=== PATIENT | female | born 1990 | race American Indian/Alaskan Native ===

== ENCOUNTER 2019-09-09 21:05 | Observation (INO) | payer MEDICAID, OTHER ==
--- NOTE | 2019-09-09 21:20 | Event Note ---
ED Screening Note Date of service: 09/09/19 Time: 21:17 ED Screening Note: Pt complains of headache x 3 days and right eye pain x today +photophobia and noise sensitivity states headaches are abnormal for her 4 months This initial assessment/diagnostic orders/clinical plan/treatment(s) is/are subject to change based on patients health status, clinical progression and re- assessment by fellow clinical providers in the ED. Further treatment and workup at subsequent clinical providers discretion. Patient/guardian urged not to elope from the ED as their condition may be serious if not clinically assessed and managed. Initial orders include: labs
[2019-09-09 22:00] LABS: Alanine Aminotransferase 23 units/L (7-56); Albumin 3.5 g/dL (3.9-5); BUN/Creatinine Ratio 15; Blood Urea Nitrogen 6 mg/dL (7-17); Calcium 8.9 mg/dL (8.4-10.2); Hemolysis Index 33
[2019-09-09 22:04] LABS: Hematocrit 34.8 % (30.3-42.9); Hemoglobin 11.9 gm/dl (10.1-14.3); Mean Corpuscular HGB Conc 34 % (30-34); Mean Corpuscular Volume 90 fl (79-97); Platelet Count 243 K/mm3 (140-440); Red Blood Count 3.86 M/mm3 (3.65-5.03); Red Cell Distribution Width 13.8 % (13.2-15.2)
[2019-09-09 22:48] LABS: Erythrocyte Sedimentation Rate 32 mm/Hr (0-20)
[2019-09-10] MEDS ORDERED: diphenhydrAMINE 50 MG/ML VIAL IV ONE (00:05)
[2019-09-10] MEDS ORDERED: MAGNESIUM SULFATE 2 GM/50 ML BAG IV ONE (00:06)
[2019-09-10] MEDS ORDERED: METOCLOPRAMIDE 10 MG/2 ML INJ IV ONE (00:06)
[2019-09-10] MEDS ORDERED: LIDOCAINE (4%) 40 MG/ML TOPICAL SOLN 50 ML BOTTLE TP ONE (00:07)
[2019-09-10] MEDS ORDERED: ACETAMINOPHEN 325 MG TAB PO ONE (00:11)
--- NOTE | 2019-09-10 00:11 | Emergency Department Report ---
ED General Adult HPI - General Chief complaint: Headache Stated complaint: HEADACHE Time Seen by Provider: 09/09/19 21:16 Source: patient, RN notes reviewed Mode of arrival: Ambulatory Limitations: No Limitations - History of Present Illness Initial comments: This is a 29-year-old female who is not known to this provider previously. The patient reports that she is approximately 24 weeks, 2 days , her due date is December, and her [employer] physician is Dr. Arellano The patient presents to the ER with a primary complaint of headache. Today's currently Tuesday morning. The headache started Tuesday. The headache was initially central. The headache is not sudden or thunderclap in nature. The headache has now migrated to the right periorbital region, and right anterior frontal region, and right face. The headache is throbbing, and not described as sudden or thunderclap in nature. This headache is not similar to previous headaches that she's had in the past. There is no midline neck pain, there is no neck stiffness, there is no loss of vision. The patient endorses sensitivity to light and sound. There is no dental pain. This is new for her. There is no tinnitus. There is no vertigo. There is no abdominal pain. There are no urinary symptoms. -: Gradual, hour(s) Location: head, face Quality: aching, other Consistency: intermittent Improves with: rest Worsens with: other (worsens with exposure to light, and sound) - Related Data Previous Rx's Medication Instructions Recorded Last Taken Type Ferrous Sulfate [Feosol 325 MG tab] 325 mg PO BID #60 tablet 10/30/13 Unknown Rx Ibuprofen [Motrin] 800 mg PO TID PRN #30 tablet 10/30/13 Unknown Rx Vit-Fe Fumar-FA [ 1 each PO QDAY #30 tablet 10/30/13 Unknown Rx Vitamin] Allergies Allergy/AdvReac Type Severity Reaction Status Date / Time No Known Allergies Allergy Unverified 10/29/13 08:27 ED Review of Systems ROS: Stated complaint: HEADACHE Other details as noted in HPI Constitutional: denies: fever Eyes: denies: eye pain, eye discharge, vision change ENT: denies: dental pain Respiratory: denies: cough Cardiovascular: denies: chest pain Gastrointestinal: denies: abdominal pain, vomiting Genitourinary: denies: dysuria Musculoskeletal: denies: back pain Skin: denies: lesions Neurological: headache. denies: weakness, numbness, paresthesias, confusion ED Past Medical Hx - Past Medical History Previous Medical History?: No Hx Hypertension: No Hx Congestive Heart Failure: No Hx Diabetes: No Hx Deep Vein Thrombosis: No Hx Renal Disease: No Hx Sickle Cell Disease: No Hx Seizures: No Hx Asthma: No Hx COPD: No Hx HIV: No - Surgical History Past Surgical History?: No - Social History Smoking Status: Never Smoker Substance Use Type: None - Medications Home Medications: Home Medications Medication Instructions Recorded Confirmed Last Taken Type Ferrous Sulfate [Feosol 325 MG tab] 325 mg PO BID #60 tablet 10/30/13 Unknown Rx Ibuprofen [Motrin] 800 mg PO TID PRN #30 tablet 10/30/13 Unknown Rx Vit-Fe Fumar-FA [ 1 each PO QDAY #30 tablet 10/30/13 Unknown Rx Vitamin] ED Physical Exam - General Limitations: No Limitations General appearance: alert, in no apparent distress - Head Head exam: Present: atraumatic, normocephalic - Eye Eye exam: Present: normal appearance, PERRL, EOMI, other (visual acuity intact to finger counting, color perception, reading at a close distance). Absent: scleral icterus, conjunctival injection, nystagmus, periorbital tenderness - ENT ENT exam: Present: normal exam, normal orophraynx, mucous membranes moist, TM's normal bilaterally, normal external ear exam - Neck Neck exam: Present: normal inspection, full ROM. Absent: tenderness, meningismus - Respiratory Respiratory exam: Present: normal lung sounds bilaterally. Absent: respiratory distress - Cardiovascular Cardiovascular Exam: Present: regular rate, normal rhythm, normal heart sounds. Absent: bradycardia, tachycardia, irregular rhythm, systolic murmur, diastolic murmur, rubs, gallop - GI/Abdominal GI/Abdominal exam: Present: soft. Absent: distended, tenderness, guarding, rebound, rigid, pulsatile mass - Extremities Exam Extremities exam: Present: normal inspection, full ROM, other (2+ pulses noted in the bilateral upper, lower extremities. There is no long bone tenderness. Musculoskeletal compartments are soft. The pelvis is stable.). Absent: pedal edema, joint swelling, calf tenderness - Back Exam Back exam: Present: normal inspection, full ROM. Absent: tenderness, CVA tenderness (R), CVA tenderness (L), paraspinal tenderness, vertebral tenderness - Neurological Exam Neurological exam: Present: alert, oriented X3, normal gait (there is no past- pointing. There is normal [id number]. There is a normal gait. There is normal tandem gait. There is negative pronator drift.), other (there is no facial droop. The tongue is midline. Extraocular movements are intact bilaterally. Patient speaking in full complete sentences. Shoulder shrug is intact bilaterally. Hearing is grossly intact bilaterally. Visual acuity intact to finger counting and color perception at a close distance. 5/5 strength 4 extremities. Sensation intact to light touch in 4 extremities.). Absent: motor sensory deficit - Psychiatric Psychiatric exam: Present: normal affect, normal mood - Skin Skin exam: Present: warm, dry, intact, normal color. Absent: rash ED Course Vital Signs 09/09/19 09/09/19 09/09/19 21:09 21:12 21:24 Temperature 99.0 F 99 F 98.4 F Pulse Rate 82 82 69 Respiratory 18 18 18 Rate Blood Pressure 115/76 115/76 129/65 O2 Sat by Pulse 99 99 99 Oximetry 09/10/19 09/10/19 00:06 00:30 Temperature Pulse Rate Respiratory Rate Blood Pressure 123/68 109/64 O2 Sat by Pulse Oximetry - Reevaluation(s) Reevaluation #1: 09/10/19 01:03 Differential diagnosis, including not limited to: Migraine headache, tension headache, cluster headache, intracranial hemorrhage, venous sinus thrombosis, preeclampsia Assessment and plan: 29-year-old female with new onset headache, present for 3 days, no neck stiffness, headache is not sudden or thunderclap in nature, it does have migrainous characteristics. However, the patient states that she's not had a headache like this before in the past. She walks with a steady gait, has no cerebellar signs, and has an unremarkable neurologic examination. Bedside ultrasound confirms intrauterine . Reevaluation #2: 09/10/19 01:30 The patient states her due date is December, therefore, she is 24 weeks, 2 d ays . A bedside ultrasound confirms and serum , and spontaneous heart rate and movements. Noncontrast CT scan of brain negative for acute disease. Patient indicates that she feels somewhat improved. However, her headache is not completely improved. She is not hypertensive, she has normal liver tests, there is no lower extremity edema, therefore, we do not think that preeclampsia is very likely. I contacted [employer] on-call, Dr. Adkins, and he agreed that preeclampsia is very unlikely at this point time. We also contacted neurology on-call, Dr. Allyssa Kenyon, and discussed the patient's history, physical, and imaging studies. He indicates that migrainous headache is a possibility, however, we cannot exclude venous sinus thrombosis at this time. He further agrees and recommends that MRI of the brain, MRV, without contrast, would be reasonable to further evaluate intracranial structures. The aforementioned [employer] doctor indicates he can follow in consultation, if inpatient medical team has specific obstetrics related questions. Discussed this plan of care with the patient, who is amenable to admission/hospitalization. We contacted our Hospital physician on-call, Dr. Chong, who had graciously agreed to admit the patient to the medical service. ED Medical Decision Making - Lab Data Result diagrams: 09/09/19 21:28 09/09/19 21:28 Critical care attestation.: If time is entered above; I have spent that time in minutes in the direct care of this critically ill patient, excluding procedure time. ED Disposition Clinical Impression: Headache, Disposition: -09 OP ADMIT IP TO THIS HOSP Is pt being admited?: Yes Does the pt Need Aspirin: No Condition: Good Referrals: DOLORES ISAAC MD [Primary Care Provider] - 3-5 Days
--- NOTE | 2019-09-10 00:57 | Cat Scan Report ---
CT head/brain wo con INDICATION / CLINICAL INFORMATION: headache. Patient is . TECHNIQUE: Axial CT imaging of the brain was obtained without contrast. Coronal and sagittal reformatted imaging obtained and reviewed. All CT scans at this location are performed using CT dose reduction for ALAR A by means of automated exposure control. COMPARISON: None available. FINDINGS: No intracranial hemorrhage, mass, or midline shift is identified. No extra-axial fluid collection or suggestion of acute territorial infarct. Ventricular system and basilar cisterns are unremarkable. Visualized paranasal sinuses are well aerated and clear. Mastoid air cells are clear. No calvarial ab normality. IMPRESSION: 1. Negative noncontrasted head CT scan. Signer Name: Flor Davis MD Signed: 09/10/2019 12:52 AM Workstation Name: [id number]
[2019-09-10 01:31] LABS: Bilirubin,Urine NEG (Negative); Color,Urine Yellow (Yellow); Mucus,Urine FEW /HPF; Protein,Urine <15 mg/dL mg/dL (Negative); Urobilinogen,Urine < 2.0 mg/dL (<2.0)
[2019-09-10 01:32] LABS: Blood,Urine Trace (Negative)
[2019-09-10] MEDS ORDERED: MORPHINE 2 MG/1 ML INJ IV PRN (01:47)
[2019-09-10] MEDS ORDERED: ONDANSETRON 4 MG/2 ML INJ IV PRN (01:47)
--- NOTE | 2019-09-10 01:50 | History and Physical Report ---
History of Present Illness Date of examination: 09/10/19 History of present illness: 29-year-old woman, 24 weeks comes to the emergency room complaints of headache that started on Tuesday. He is on the right side which was intermittent but has now become constant,some relief with Tylenol, sharp, intensity 7/10, no radiation, cervical light and sound and no nausea vomiting, fever, chills Review Of Systems: Constitutional: no weight loss, fever, chills Ears, eyes, nose, mouth and throat: no nasal congestion, no nasal discharge, no sinus pressure, blurry vision, diplopia Neck: No neck pain or rigidity. Cardiovascular: No palpitations, chest pain Respiratory: No shortness of breath, cough Gastrointestinal: No hematochezia, abdominal pain Genitourinary : no dysuria, frequency Musculoskeletal: no muscle ache , joint pain Integumentary: no rash, no pruritis Neurological: no parathesias, focal weakness Endocrine: no cold or heat intolerance, no polyuria or polydipsia Hematologic/Lymphatic: no easy bruising, no easy bleeding, no gland swelling Allergic/Immunologic: no urticaria, no angioedema. PAST MEDICAL HISTORY:24 weeks PAST SURGICAL HISTORY: None FAMILY HISTORY:hypertension, diabetes SOCIAL HISTORY: Denies tobacco, drugs, alcohol Medications and Allergies Allergies Allergy/AdvReac Type Severity Reaction Status Date / Time No Known Allergies Allergy Unverified 10/29/13 08:27 Home Medications Medication Instructions Recorded Confirmed Last Taken Type Ferrous Sulfate [Feosol 325 MG tab] 325 mg PO BID #60 tablet 10/30/13 Unknown Rx Ibuprofen [Motrin] 800 mg PO TID PRN #30 tablet 10/30/13 Unknown Rx Vit-Fe Fumar-FA [ 1 each PO QDAY #30 tablet 10/30/13 Unknown Rx Vitamin] Exam - Physical Exam Narrative exam: General Apperance: The patient sitting in bed no acute distress HEENT: Normocephalic, atraumatic. Pupils equally round and reactive to light, extraocular movement intact, and no sclericterus or JVD or thyromegaly or nodule. Neck supple, no carotid bruit, mucous membranes moist, no exudate or erythema Heart: S1-S2, regular is rhythm Lungs: Clear to auscultation bilaterally, breathing comfortable Abdomen: Positive bowel sounds, soft, nontender, nondistended, no organomegaly Extremities: No edema cyanosis clubbing Skin: no rash, nodule, warm and dry Neuro:CN 2 -12 intact, motor/sensory intact, speech is fluent - Constitutional Vitals: Temp Pulse Resp BP Pulse Ox 98.4 F 69 18 109/64 99 09/09/19 21:24 09/09/19 21:24 09/09/19 21:24 09/10/19 00:30 09/09/19 21:24 Results - Labs CBC & Chem 7: 09/09/19 21:28 09/09/19 21:28 Labs: Abnormal lab results 09/09/19 09/09/19 09/10/19 Range/Units 21:28 21:28 01:14 WBC 11.4 H (4.5-11.0) K/mm3 Sodium 136 L (137-145) mmol/L Carbon Dioxide 20 L (22-30) mmol/L BUN 6 L (7-17) mg/dL Creatinine 0.4 L (0.7-1.2) mg/dL Glucose 103 H (65-100) mg/dL Albumin 3.5 L (3.9-5) g/dL Urine WBC (Auto) 17.0 H (0.0-6.0) /HPF - Imaging and Cardiology CT Scan - head: report reviewed Assessment and Plan Assessment Migraine headache Urinary tract Infection Plan Admit to medicine Start IV morphine, antiemetics Consult neurology Telemetry neurology recommended MRI to rule out venous sinusitis thrombosis Patient to decide on MRI, start rocephin, follow cultures, start Iv morphine DVT prophylaxis
[2019-09-10] MEDS: cefTRIAXone/NS 1 GM/50 ML 1 GM/50 ML BAG IV SCH (06:27)
[2019-09-10] MEDS ORDERED: ENOXAPARIN 30 MG/0.3 ML INJ SUB-Q SCH (10:00)
[2019-09-10] MEDS: ENOXAPARIN 40 MG/0.4 ML INJ SUB-Q SCH (10:23)
[2019-09-10] MEDS: ACETAMINOPHEN 325 MG TAB PO PRN (11:55)
--- NOTE | 2019-09-10 13:00 | Event Note ---
Date: 09/10/19 18-year-old lady who started 4 weeks admitted for severe migraine headache. Patient cannot be on symptoms develop. Commenced tylenol and muscle relaxants per neurology recommendation
--- NOTE | 2019-09-10 14:41 | Consultation ---
Medications and Allergies Allergies Allergy/AdvReac Type Severity Reaction Status Date / Time No Known Allergies Allergy Unverified 10/29/13 08:27 Home Medications Medication Instructions Recorded Confirmed Last Taken Type Ferrous Sulfate [Feosol 325 MG tab] 325 mg PO BID #60 tablet 10/30/13 Unknown Rx Ibuprofen [Motrin] 800 mg PO TID PRN #30 tablet 10/30/13 Unknown Rx Vit-Fe Fumar-FA [ 1 each PO QDAY #30 tablet 10/30/13 Unknown Rx Vitamin] Active Meds: Active Medications Acetaminophen (Tylenol) 650 mg PO Q4H PRN PRN Reason: Pain MILD(1-3)/Fever >100.5/CHIANG Last Admin: 09/10/19 11:55 Dose: 650 mg Documented by: Enoxaparin Sodium (Enoxaparin) 40 mg SUB-Q QDAY@1000 KATE Last Admin: 09/10/19 10:23 Dose: 40 mg Documented by: Ceftriaxone Sodium (Rocephin/Ns 1 Gm/50 Ml) 1 gm in 50 mls @ 100 mls/hr IV Q24H KATE; Protocol Last Admin: 09/10/19 06:27 Dose: 100 mls/hr Documented by: Morphine Sulfate (Morphine) 1 mg IV Q6H PRN PRN Reason: Pain, Moderate (4-6) Last Admin: 09/10/19 05:06 Dose: 1 mg Documented by: Ondansetron HCl (Zofran) 4 mg IV Q8H PRN PRN Reason: Nausea And Vomiting Sodium Chloride (Sodium Chloride Flush Syringe 10 Ml) 10 ml IV BID [facility] Last Admin: 09/10/19 10:23 Dose: 10 ml Documented by: Sodium Chloride (Sodium Chloride Flush Syringe 10 Ml) 10 ml IV PRN PRN PRN Reason: LINE FLUSH Physical Examination - Vital Signs Vital Signs: Vital Signs Temp Pulse Resp BP Pulse Ox 99.0 F 82 18 115/76 99 09/09/19 21:09 09/09/19 21:09 09/09/19 21:09 09/09/19 21:09 09/09/19 21:09 Results - Laboratory Findings CBC and BMP: 09/09/19 21:28 09/09/19 21:28 Abnormal Lab Findings: Abnormal Labs 09/09/19 09/09/19 09/10/19 21:28 21:28 01:14 WBC 11.4 H Sodium 136 L Carbon Dioxide 20 L BUN 6 L Creatinine 0.4 L Glucose 103 H Albumin 3.5 L Urine WBC (Auto) 17.0 H Assessment and Plan 29 YEAR OLD FEMALE WITH HISTORY OF NO SIGNIFICANT MEDICAL PROBLEM, CURRENTLY 24 WEEK , 3, PARA2 WHO DEVELOPED HEADACHE ON 09/07/2019/. HEADACHE GRADUALLY BECAME SO SEVERE THAT SHE HAD TO COME TO THE EMERGENCY TODAY. HAD A CT SCAN OF THE HEAD UPON ADMISSION WHICH DID NOT SHOW ANY INTRA CRANIAL ABNORMALITY, ACUTE OR CHRONIC.HEADACHE IS DESCRIBED SENSATION OF THROBBING MOSTLY ON THE RT CHRISTIANITY, ASSOCIATED WITH PHOTOPHOBIA,SONOPHOBIA, NO NAUSEA OR VOMITTING. PATIENT ALSO FEELS A SENSATION OF TIGHT BAND AROUND HER HEAD AND IF WEARING A TIGHT HAT.SHE WORKS A [employer] AT [employer] [place]. SHE WORKS TEN HOURS A DAY AND THERE IS SIGNIFICANT STRESS AT WORK. PHYSICAL EXAMINATION. GENERAL- IN NO ACUTE DISTRESS, SHE IS ALERT AND APPROPRIATE, HAS INSIGHT INTO HER PROBLEM AND ANSWERS QUESTIONS APPROPRIATELY. HEART-NORMAL RATE AND RHYTHM CAROTIDS- BOTH PALPABLE, CRANIAL NERVES- PUPILS REACT TO LIGHT, EXTRA OCULAR MOVEMENT IS INTACT,NO FACIAL SYMMETRY, OTHER CRANIAL NERVES ARE WITH IN NORMAL LIMIT. MOTOR- NORMAL STRENGTH IN ALL FOUR EXTREMITIES. CERVICAL,PARA SPINAL STIFFNESS, STIFFNESS AROUND CRANIAL VAULT, REFLEXES- ALL REFLEXES ARE WITH IN NORMAL LIMIT WITH BILATERAL DOWN GOING TOES. SENSORY- GROSSLY WITH IN NORMAL,LIMIT IMPRESSION 1. COMMON MIGRAINE SUPER IMPOSED ON TENSION TYPE HEADACHE, RECOMMEND. 1. SPECIFIC MEDICINE SUCH TRIPTANS CAN NOT BE GIVEN DUE TO HER 2. WILL GIVE HER FLEXERIL 5MG AND TYELENOL 500MG TOGETHER TWICE3. A DAY, 3. MELATONIN 3MG AT BED TIME, ONE DOSE ONLY.
[2019-09-10] MEDS: CYCLOBENZAPRINE 10 MG TAB PO SCH (18:07)
[2019-09-10] MEDS: MELATONIN 5 MG TAB PO SCH (21:14)
[2019-09-10] MEDS: ACETAMINOPHEN 500 MG TAB PO SCH (21:14)
[2019-09-10] MEDS ORDERED: MELATONIN 5 MG TAB PO SCH (22:00)
[2019-09-11] MEDS: cefTRIAXone/NS 1 GM/50 ML 1 GM/50 ML BAG IV SCH (05:18)
[2019-09-11] MEDS: ACETAMINOPHEN 325 MG TAB PO PRN ×2 (05:29→19:44)
[2019-09-11 08:51] LABS: Basophils # (Auto) 0.1 K/mm3 (0.0-0.1); Basophils % (Auto) 0.8 % (0.0-1.8); Eosinophils # (Auto) 0.2 K/mm3 (0.0-0.4); Eosinophils % (Auto) 2.8 % (0.0-4.3); Hematocrit 33.1 % (30.3-42.9); Hemoglobin 11.2 gm/dl (10.1-14.3); Lymphocytes # (Auto) 1.9 K/mm3 (1.2-5.4); Lymphocytes % (Auto) 21.6 % (13.4-35.0); Mean Corpuscular HGB Conc 34 % (30-34); Mean Corpuscular Volume 91 fl (79-97); Monocytes # (Auto) 0.9 K/mm3 (0.0-0.8); Monocytes % (Auto) 10.7 % (0.0-7.3); Platelet Count 206 K/mm3 (140-440); Red Blood Count 3.63 M/mm3 (3.65-5.03); Red Cell Distribution Width 14.3 % (13.2-15.2)
[2019-09-11 09:03] LABS: BUN/Creatinine Ratio 18; Blood Urea Nitrogen 7 mg/dL (7-17); Calcium 8.8 mg/dL (8.4-10.2); Hemolysis Index 0
[2019-09-11] MEDS: ACETAMINOPHEN 500 MG TAB PO SCH ×2 (10:05→23:35)
[2019-09-11] MEDS: CYCLOBENZAPRINE 10 MG TAB PO SCH ×2 (10:06→21:23)
[2019-09-11] MEDS: ENOXAPARIN 40 MG/0.4 ML INJ SUB-Q SCH (10:07)
--- NOTE | 2019-09-11 12:38 | Progress Note ---
Assessment and Plan Assessment and plan: Common Migraine. Patient still complains of headache. Continue Flexeril, Tylenol and melatonin. . UTI. Continue Rocephin. History Interval history: No new issues overnight. Hospitalist Physical - Constitutional Vitals: Temp Pulse Resp BP Pulse Ox 98.6 F 89 19 102/63 98 09/11/19 12:04 09/11/19 12:04 09/11/19 12:04 09/11/19 12:04 09/11/19 12:04 General appearance: Present: no acute distress, well-nourished - EENT Eyes: Present: PERRL, EOM intact ENT: hearing intact, clear oral mucosa, dentition normal - Neck Neck: Present: supple, normal ROM - Respiratory Respiratory effort: normal Respiratory: bilateral: CTA - Cardiovascular Rhythm: regular Heart Sounds: Present: S1 & S2. Absent: gallop, rub - Extremities Extremities: no ischemia, No edema, Full ROM - Abdominal General gastrointestinal: soft, non-tender, non-distended, normal bowel sounds - Integumentary Integumentary: Present: clear, warm, dry - Neurologic Neurologic: CNII-XII intact, moves all extremities Results - Labs CBC & Chem 7: 09/11/19 07:42 09/11/19 07:42 Labs: Laboratory Last Values WBC 8.7 K/mm3 (4.5-11.0) 09/11/19 07:42 RBC 3.63 M/mm3 (3.65-5.03) L 09/11/19 07:42 Hgb 11.2 gm/dl (10.1-14.3) 09/11/19 07:42 Hct 33.1 % (30.3-42.9) 09/11/19 07:42 MCV 91 fl (79-97) 09/11/19 07:42 MCH 31 pg (28-32) 09/11/19 07:42 MCHC 34 % (30-34) 09/11/19 07:42 RDW 14.3 % (13.2-15.2) 09/11/19 07:42 Plt Count 206 K/mm3 (140-440) 09/11/19 07:42 Lymph % (Auto) 21.6 % (13.4-35.0) 09/11/19 07:42 [place] % (Auto) 10.7 % (0.0-7.3) H 09/11/19 07:42 Eos % (Auto) 2.8 % (0.0-4.3) 09/11/19 07:42 Baso % (Auto) 0.8 % (0.0-1.8) 09/11/19 07:42 Lymph # 1.9 K/mm3 (1.2-5.4) 09/11/19 07:42 [place] # 0.9 K/mm3 (0.0-0.8) H 09/11/19 07:42 Eos # 0.2 K/mm3 (0.0-0.4) 09/11/19 07:42 Baso # 0.1 K/mm3 (0.0-0.1) 09/11/19 07:42 Seg Neutrophils % 64.1 % (40.0-70.0) 09/11/19 07:42 Seg Neutrophils # 5.6 K/mm3 (1.8-7.7) 09/11/19 07:42 ESR 32 mm/Hr (0-20) 09/09/19 21:28 Sodium 137 mmol/L (137-145) 09/11/19 07:42 Potassium 4.0 mmol/L (3.6-5.0) 09/11/19 07:42 Chloride 103.7 mmol/L (98-107) 09/11/19 07:42 Carbon Dioxide 21 mmol/L (22-30) L 09/11/19 07:42 Anion Gap 16 mmol/L 09/11/19 07:42 BUN 7 mg/dL (7-17) 09/11/19 07:42 Creatinine 0.4 mg/dL (0.7-1.2) L 09/11/19 07:42 Estimated GFR > 60 ml/min 09/11/19 07:42 BUN/Creatinine Ratio 18 % 09/11/19 07:42 Glucose 83 mg/dL (65-100) 09/11/19 07:42 Calcium 8.8 mg/dL (8.4-10.2) 09/11/19 07:42 Magnesium 1.80 mg/dL (1.7-2.3) 09/10/19 00:00 Total Bilirubin 0.30 mg/dL (0.1-1.2) 09/09/19 21:28 AST 23 units/L (5-40) 09/09/19 21:28 ALT 23 units/L (7-56) 09/09/19 21:28 Alkaline Phosphatase 59 units/L (35-129) 09/09/19 21:28 Total Creatine Kinase 86 units/L (30-135) 09/10/19 00:00 Total Protein 7.1 g/dL (6.3-8.2) 09/09/19 21:28 Albumin 3.5 g/dL (3.9-5) L 09/09/19 21:28 Albumin/Globulin Ratio 1.0 % 09/09/19 21:28 Urine Color Yellow (Yellow) 09/10/19 01:14 Urine Turbidity Slightly-cloudy (Clear) 09/10/19 01:14 Urine pH 6.0 (5.0-7.0) 09/10/19 01:14 Ur Specific Thermal 1.011 (1.003-1.030) 09/10/19 01:14 Urine Protein <15 mg/dl mg/dL (Negative) 09/10/19 01:14 Urine Glucose (UA) Neg mg/dL (Negative) 09/10/19 01:14 Urine Ketones Neg mg/dL (Negative) 09/10/19 01:14 Urine Blood Trace (Negative) 09/10/19 01:14 Urine Nitrite Neg (Negative) 09/10/19 01:14 Urine Bilirubin Neg (Negative) 09/10/19 01:14 Urine Urobilinogen < 2.0 mg/dL (<2.0) 09/10/19 01:14 Ur Leukocyte Esterase Lg (Negative) 09/10/19 01:14 Urine WBC (Auto) 17.0 /HPF (0.0-6.0) H 09/10/19 01:14 Urine RBC (Auto) 30.0 /HPF (0.0-6.0) 09/10/19 01:14 U Epithel Cells (Auto) 6.0 /HPF (0-13.0) 09/10/19 01:14 Urine Mucus Few /HPF 09/10/19 01:14 Active Medications - Current Medications Current Medications: Generic Name Dose Route Start Last Admin Trade Name Freq PRN Reason Stop Dose Admin Acetaminophen 650 mg 09/10/19 01:47 09/11/19 05:29 Tylenol PO 650 mg Q4H PRN Administration Pain MILD(1-3)/Fever >100.5/CHIANG Acetaminophen 500 mg 09/10/19 22:00 09/11/19 10:05 Tylenol PO 500 mg BID KATE Administration Cyclobenzaprine HCl 5 mg 09/10/19 18:15 09/11/19 10:06 Flexeril PO 5 mg BID KATE Administration Enoxaparin Sodium 40 mg 09/10/19 10:00 09/11/19 10:07 Enoxaparin SUB-Q 40 mg QDAY@1000 KATE Administration Ceftriaxone Sodium 1 gm in 50 mls @ 100 mls/hr 09/10/19 06:00 09/11/19 05:18 Rocephin/Ns 1 Gm/50 Ml IV 09/14/19 06:29 100 mls/hr Q24H KATE Administration Protocol Melatonin 5 mg 09/10/19 22:00 09/10/19 21:14 Melatonin PO 5 mg QHS KATE Administration Morphine Sulfate 1 mg 09/10/19 01:47 09/10/19 05:06 Morphine IV 1 mg Q6H PRN Administration Pain, Moderate (4-6) Ondansetron HCl 4 mg 09/10/19 01:47 Zofran IV Q8H PRN Nausea And Vomiting Sodium Chloride 10 ml 09/10/19 10:00 09/10/19 21:14 Sodium Chloride Flush Syringe 10 Ml IV 10 ml BID KATE Administration Sodium Chloride 10 ml 09/10/19 01:47 Sodium Chloride Flush Syringe 10 Ml IV PRN PRN LINE FLUSH Nutrition/Malnutrition Assess - Dietary Evaluation Nutrition/Malnutrition Findings: Nutrition Notes Start: 09/10/19 10:51 Freq: Status: Active Protocol: Document 09/10/19 10:52 PATRICIA (Rec: 09/10/19 10:52 PATRICIA [id number]) Nutrition Notes 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 Will assess upon further consult or LOS.
--- NOTE | 2019-09-11 17:18 | Progress Note ---
Assessment and Plan 29 YEAR OLD FEMALE WITH HISTORY OF NO SIGNIFICANT MEDICAL PROBLEM WHO WAS ADMITTED ON ACCOUNT OF SEVERE HEADACHE. SHE WAS 24 WEEK . HEADACHE WAS A COMBINATION OF BOTH COMMON MIGRAINE AND WELL CHRONIC TENSION TYPE. PATIENT WAS GIVEN A COMBINATION OF TYELENOL 500MG AND FLEXERIL 5MG PO BID AND WAS GIVEN 5MG MELATONIN AT NIGHT FOR SLEEP. PATIENT STATES SHE FEELS MUCH BETTER TODAY, HEADACHE HAS ALMOST RESOLVED, ANTI MIGRAINE MEDICATION COULD NOT BE GIVEN DUE TO HER , HOWEVER AT PRESENT MIGRAINE WEELL TENSION TYPE EHADACHE SYMPTOMS BOTH HAVE ALMOST RESOLVED. PHYSICAL EXAMINATION IN NOACUTE DISTRESS. STATES SHE FEELS MUCH BETTER. SMILING. HEART-NORMAL RATE AND RHYTHM CAROTIDS- BOTH PALPABLE CRANIAL NERVES- ALL WITH IN NORMAL LIMIT MOTOR-NORMAL STRENGTH IN ALL FOUR EXTREMITIES COORDINATION AND REFLEXES ARE NORMAL GAIT- NORMAL. IMPRESSION. 1.HEAD IN , COMMON MIGRAINE AND TENSION TYPE, RESPONDED TO CYCLOBENZAPRINE AND TYELENOL RECOMMEND 1. PATIENT MAY BE DISCHARGED TOMORROW. 2. PATIENT SHOULD BE GIVEN A PRESCRIPTION FOR FLEXERIL 5 MG PO BID PRN, PATIENT SHOULD BE INSTRUCTED TO TAKE FLEXERIL WITH TYELENOL 500MG BID PRN,BUT SHOULD NOT TAKE UNLESS ABSOLUTELY NECESSARY SHE IS [id number]. 3. SHE SHOULD BE ADVISED TO TAKE MELATONIN 5MG QHS IF SHE HAS DIFFICULTY SLEEPING. Objective - Vital Sign Vital Signs - 12hr 09/11/19 09/11/19 09/11/19 06:07 12:04 16:46 Temperature 98.1 F 98.6 F Pulse Rate 82 89 Pulse Rate [ 82 Right Brachial] Respiratory 18 19 18 Rate Blood Pressure 100/57 102/63 O2 Sat by Pulse 97 98 97 Oximetry - Laboratory Findings CBC and BMP: 09/11/19 07:42 09/11/19 07:42 Abnormal Lab Findings: Abnormal Labs 09/09/19 09/09/19 09/10/19 21:28 21:28 01:14 WBC 11.4 H RBC [place] % (Auto) [place] # Sodium 136 L Carbon Dioxide 20 L BUN 6 L Creatinine 0.4 L Glucose 103 H Albumin 3.5 L Urine WBC (Auto) 17.0 H 09/11/19 09/11/19 07:42 07:42 WBC RBC 3.63 L [place] % (Auto) 10.7 H [place] # 0.9 H Sodium Carbon Dioxide 21 L BUN Creatinine 0.4 L Glucose Albumin Urine WBC (Auto)
[2019-09-11] MEDS: MELATONIN 5 MG TAB PO SCH (21:27)
[2019-09-12] MEDS: ACETAMINOPHEN 325 MG TAB PO PRN (05:26)
[2019-09-12] MEDS: cefTRIAXone/NS 1 GM/50 ML 1 GM/50 ML BAG IV SCH (05:26)
--- NOTE | 2019-09-12 10:00 | Discharge Summary ---
Providers - Providers Date of Admission: 09/10/19 01:45 Date of discharge: 09/12/19 Attending physician: AAYUSH HONG 09/10/19 01:47 Consult to Physician [CONS] Routine Comment: Consulting Provider: FRANCISCO HILARIO Physician Instructions: Reason For Exam: migraine Primary care physician: DOLORES ISAAC Hospitalization Reason for admission: h/a Condition: Good Hospital course: 29-year-old woman, 24 weeks comes to the emergency room complaints of headache that started on Tuesday. Headache was located on the right side which was intermittent but later became constant prompting the visit to the emergency room. Patient was noted to have some relief with Tylenol. Pain was described as sharp, intensity 7/10 however, no radiation, cervical light and sound and no nausea vomiting, fever, chills. The patient was seen by neurology and diagnosed with common migraine as well as chronic tension type headache. Patient was unable to take antimigraine medication given her . The patient was treated with Flexeril and Tylenol. Neurology felt patient could be discharged today with Flexeril 5 mg by mouth twice a day and melatonin for sleep. Dedicated discharge time 32 minutes. Disposition: - TO HOME OR SELFCARE Time spent for discharge: 32 - Discharge Diagnoses (1) Headache Status: Acute (2) Status: Acute Core Measure Documentation - Palliative Care Palliative Care/ Comfort Measures: Not Applicable - Core Measures Any of the following diagnoses?: none Exam - Constitutional Vitals: Temp Pulse Resp BP Pulse Ox 98.1 F 84 18 97/55 99 09/12/19 05:32 09/12/19 05:32 09/12/19 05:32 09/12/19 05:32 09/12/19 05:32 General appearance: Present: no acute distress, well-nourished - EENT Eyes: Present: PERRL ENT: hearing intact, clear oral mucosa - Neck Neck: Present: supple, normal ROM - Respiratory Respiratory effort: normal Respiratory: bilateral: CTA - Cardiovascular Heart Sounds: Present: S1 & S2. Absent: rub, click - Extremities Extremities: pulses symmetrical, No edema Peripheral Pulses: within normal limits - Abdominal General gastrointestinal: Present: soft, non-tender, non-distended, normal bowel sounds Female genitourinary: Present: normal - Integumentary Integumentary: Present: clear, warm, dry - Musculoskeletal Musculoskeletal: gait normal, strength equal bilaterally - Psychiatric Psychiatric: appropriate mood/affect, intact judgment & insight - Neurologic Neurologic: CNII-XII intact, moves all extremities Plan Activity: advance as tolerated Weight Bearing Status: Weight Bear as Tolerated Diet: regular Follow up with: DOLORES ISAAC MD [Primary Care Provider] - 3-5 Days FRANCISCO HILARIO MD [Staff Physician] - 7 Days Prescriptions: Acetaminophen [Acetaminophen TAB] 500 mg PO BID #20 tablet Cyclobenzaprine [Flexeril 10 MG TAB] 5 mg PO BID #8 tablet Melatonin [Melatonin 5MG TAB] 5 mg PO QHS #10 tablet
[2019-09-12] MEDS: ENOXAPARIN 40 MG/0.4 ML INJ SUB-Q SCH (11:46)
[2019-09-12] MEDS: ACETAMINOPHEN 500 MG TAB PO SCH (11:47)
[2019-09-12] MEDS: CYCLOBENZAPRINE 10 MG TAB PO SCH (11:47)
[2019-09-12 12:01] VITALS: BP 107/68
== END 2019-09-12 14:45 | disposition home or self-care (01) ==
LOC: ED 21:05 → 3A 09-10 01:45
PROVIDERS: ADMIT Internal Medicine; ATTEND Hospitalist
DX: O99.352 Diseases of the nervous system complicating pregnancy, second trimester (principal); G40.909 Epilepsy, unspecified, not intractable, without status epilepticus; O23.42 Unspecified infection of urinary tract in pregnancy, second trimester; Z3A.24 24 weeks gestation of pregnancy
CPT/HCPCS: 36415; 70450; 80048; 80053; 81001; 82550; 83735; 85025; 85027; 85652; 87086; 96365; 96366; 96367; 96372; 96375; 99284; G0378; J0696; J1200; J1650; J2270; J2765; J3475